=== PATIENT | male | born 1985 | race Caucasian/White ===

== ENCOUNTER 2021-11-22 04:12 | Emergency (ER) | payer SELFPAY ==
--- NOTE | 2021-11-22 04:39 | ED.DENTAL ---
HPI - Dental/Oral General Chief complaint: Dental/Oral Stated complaint: PAIN Source: patient Mode of arrival: ambulatory Limitations: no limitations History of Present Illness HPI Narrative: this is a 35-year-old gentleman that presents with dental pain with some left lower jaw swelling tender submandibular gland on the left with some left lower molar tenderness with surrounding gum inflammation, was seen at an urgent care earlier this this afternoon was prescribed medication but pharmacy closed prior to her arrival. Currently there is no fever chills no nausea vomiting no shortness of breath. MD Complaint: tooth pain Teeth map: 1. left lower molar surrounding gum inflammation tooth decay Onset (ago): day(s) Duration: constant Severity: moderate Severity scale (1-10): 7 Relieving factors: NSAIDs Exacerbating factors: chewing and cold Associated symptoms: gum swelling Related Data Home Medications Medication Instructions Recorded Confirmed lisinopril 10 mg tablet 10 mg PO DAILY 01/12/19 11/22/21 pantoprazole 40 mg tablet,delayed 40 mg PO DAILY 01/12/19 11/22/21 release propranolol 10 mg tablet 15 mg PO TID 01/12/19 11/22/21 sertraline 100 mg tablet 200 mg PO DAILY 01/12/19 11/22/21 hydrochlorothiazide 12.5 mg capsule 12.5 mg PO BID 11/22/21 11/22/21 hydroxyzine pamoate 25 mg capsule 25 mg PO DAILY 11/22/21 11/22/21 lidocaine HCl 2 % mucosal solution See Rx Instructions .Route .COMPLEX 11/22/21 11/22/21 (Lidocaine Viscous) naproxen 500 mg tablet 500 mg PO BID PRN Pain 11/22/21 11/22/21 Allergies Allergy/AdvReac Type Severity Reaction Status Date / Time No Known Allergies Allergy Verified 11/22/21 04:26 Review of Systems Review of Systems: All systems reviewed & are unremarkable except as noted in HPI and below PMFSH Past Medical History Medical History Patient denies medical problems Exam Const: General: healthy appearing and no acute distress Nutritional Appearance: well nourished HENMT: Head: normal to inspection Other: left lower jaw swelling and submandibular tenderness with palpation on the le Eyes: EOM: EOMs intact bilaterally Direct Ophthalmoscopy: no photophobia Neck: Neck: normal visual inspection, no lymphadenopathy and no meningeal signs Chest: Chest palpation & inspection: normal inspection of the chest Resp: Effort & Inspection: normal respiratory effort Auscultation: clear to auscultation bilaterally Cardio: Rate: regular rate Rhythm: regular rhythm GI: Auscultation: normal bowel sounds Skin: General skin exam: normal color Rashes: no rashes Neuro: General: patient oriented x3 and moves all extremities Extrem: General: normal to inspection and no clubbing, cyanosis or edema Psych: Mental Status: mental status grossly normal Affect: normal affect Course Course Emergency Course: patient received IM ceftriaxone and IM Toradol for pain and antibiotic Critical Care Time Critical Care Time Critical Care Time: No Discharge Plan Discharge Clinical Impression: Toothache, Dental abscess Patient Disposition: Home, Self-Care Condition: Stable Instructions: Antibiotic Form, Toothache (ED), Dental Abscess (ED) Additional Instructions: Take medicine as previous prescribed by urgent care and follow-up with dentist. Prescriptions: No Action lisinopril 10 mg Tablet 10 mg PO DAILY sertraline 100 mg tablet 200 mg PO DAILY propranolol 10 mg tablet 15 mg PO TID pantoprazole 40 mg tablet,delayed release (DR/EC) 40 mg PO DAILY amoxicillin-pot clavulanate 875-125 mg tablet 1 tablet PO Q12H Qty: 20 0RF Follow-up/Referrals: UNKNOWN,DOCTOR [Primary Care Provider] - Stand Alone Forms: Work/School Release IP Time of Disposition: 04:43
[2021-11-22 04:42] VITALS: BP 133/87; PULSE 99; RESP 19; TEMP 36.3; O2SAT 96
[2021-11-22] MEDS: KETOROLAC (*BKC) 60 MG/2 ML VIAL IM (04:58)
[2021-11-22] MEDS: cefTRIAXone 1 GM, LIDOCAINE HCL 1% LOCAL INJ 2.1 ML IM (05:01)
[2021-11-22 05:46] VITALS: BP 113/68; PULSE 106; RESP 18; TEMP 36.2; O2SAT 95
== END 2021-11-22 05:48 | disposition home or self-care (01) ==
PROVIDERS: Emergency Provider Emergency Medicine
DX: K08.89 Other specified disorders of teeth and supporting structures (principal); K04.7 Periapical abscess without sinus
CPT/HCPCS: 96372; 99284; J0696; J1885

== ENCOUNTER 2023-09-02 20:08 | Emergency (ER) | payer OTHER, SELFPAY ==
[2023-09-02] VITALS (23 sets, daily range): BP systolic 71–97; BP diastolic 22–82; PULSE 75–79; RESP 16–20; O2SAT 95–99
--- NOTE | ~2023-09-02 | XR_ITS ---
EXAMINATION: XR chest 2V DATE: 09/02/2023 21:19 INDICATION: Fluid overload. Leg swelling. TECHNIQUE: Frontal and lateral views of the chest were obtained. COMPARISON: CT abdomen and pelvis 09/02/2023 FINDINGS: There is mild atelectasis in left lower lung zone. No pleural effusion or pneumothorax. The heart size is normal. There is an old healed fracture of right sixth rib. IMPRESSION: 1. Mild atelectasis in left lower lung zone. Reviewed, dictated and finalized at location E.
--- NOTE | ~2023-09-02 | CT_ITS ---
EXAMINATION: CT abdomen pelvis w con DATE: 09/02/2023 21:19 INDICATION: Painless jaundice. TECHNIQUE: Computed tomography (CT) of the abdomen and pelvis was performed with 100 mL Omnipaque 350 intravenous contrast. Automated exposure control and iterative reconstruction technique were employe d. The dose-length product was 1574.74 mGy-cm. COMPARISON: None. FINDINGS: The visualized portions of lung bases demonstrate mild atelectasis. No pleural effusion. Th e heart size is normal. No pericardial effusion. The liver demonstrates surface nodularity, consisten t with cirrhosis. There is moderate splenomegaly. The gallbladder is distended, which may be secondar y to fasting. The pancreas, adrenal glands, and kidneys are normal. There are no dilated loops of bow el. There are no pathologically enlarged lymph nodes. There is a 14.1 x 6.7 x 13.7 cm cystic mass wit h wall calcifications in the subcutaneous fat posterior to the pelvis and lumbar spine. There is a mo derate volume of ascites. There is mild periportal lymphadenopathy, likely reactive. There is a heidi renal venous shunt. Body wall edema is noted. There is mild thoracic and lumbar spondylosis. IMPRESSION: 1. Cirrhosis of the liver with portal venous hypertension. 2. Moderate volume of ascites. 3. 14.1 cm subcutaneous cystic mass posterior to the pelvis and lumbar spine, most likely a chronic h ematoma. Reviewed, dictated and finalized at location E. IMPRESSION: 1. Cirrhosis of the liver with portal venous hypertension. 2. Moderate volume of ascites. 3. 14.1 cm subcutaneous cystic mass posterior to the pelvis and lumbar spine, m ost likely a chronic hematoma.
--- NOTE | 2023-09-02 20:11 | ED.GENADULT ---
HPI - General Adult General Chief complaint: Alcohol Stated complaint: Jaundice Time Seen by Provider: 09/02/23 20:10 History of Present Illness HPI narrative: Patient is a 37 year old male with history of ETOH abuse for 15-20 years, here with jaundice. Patient has been a heavy drinker for many years, has had several rounds of rehab, last drink was yesterday around 1 pm. He denies any withdrawal symptoms yesterday or today, previously has had withdrawal tremors, no seizures in the past. His notes that he became jaundice about 9 days ago. He has had progressive yellowing of his skin as well as progressive lower extremity swelling and darkening of his urine. He denies abdominal pain or abdominal distention. He has been referred to both a logistics lead and traveler changer in the past and never followed with them. at bedside notes about a month ago his Bilirubin was around 2 and his AST was around 300s. He denies fever, chills, cough, congestion, shortness of breath. Related Data Home Medications Medication Instructions Recorded Confirmed lisinopril 10 mg tablet 10 mg PO DAILY 01/12/19 09/02/23 pantoprazole 40 mg tablet,delayed 40 mg PO DAILY 01/12/19 09/02/23 release propranolol 10 mg tablet 10 mg PO TID 01/12/19 09/02/23 sertraline 100 mg tablet 200 mg PO DAILY 01/12/19 09/02/23 hydroxyzine pamoate 25 mg capsule 50 mg PO TID PRN Anxiety 11/22/21 09/02/23 atorvastatin 20 mg tablet 20 mg PO DAILY 09/02/23 09/02/23 buspirone 5 mg tablet 5 mg PO TID 09/02/23 09/02/23 cholecalciferol (vitamin D3) 1,250 1,250 mcg PO WEEKLY 09/02/23 09/02/23 mcg (50,000 unit) tablet folic acid 1 mg tablet 2 mg PO DAILY 09/02/23 09/02/23 magnesium 200 mg tablet 400 mg PO DAILY 09/02/23 09/02/23 Allergies Allergy/AdvReac Type Severity Reaction Status Date / Time No Known Allergies Allergy Verified 11/22/21 04:26 Review of Systems Review of Systems: All systems reviewed & are unremarkable except as noted in HPI and below PMFSH Past Medical History Medical History Patient denies medical problems Exam Narrative: GENERAL: Well-appearing, well-nourished, and in no acute distress. HEAD: Normocephalic, atraumatic. EYES: PERRLA and EOMI. Scleral icterus ENT: Nares clear. Mucous membranes moist. NECK: Supple. CHEST: Clear to auscultation. No respiratory distress. HEART: Regular rate and rhythm. Normal peripheral pulses. ABDOMEN: Soft, nontender, nondistended. EXTREMITIES: Normal range of motion. Bilateral lower extremity pitting edema to the knee. SKIN: Warm, dry, no rash. Significantly jaundice, worst in the face but is present throughout body NEURO: No focal deficits. Alert and oriented x3. No tremor noted. PSYCH: Normal mood and affect. Course Course Emergency Course: Chart review performed. Patient here with jaundice sent in by PCP. Triage vitals normal. Patient seen evaluated, significantly jaundiced, concern for acute liver failure with cirrhosis due to underlying ETOH abuse. Will do basic labs, CT abdomen pelvis to evaluate for possible obstructive process such as liver mass or pancreatic mass. Lab work and imaging reviewed. CBC shows Hgb of 1.6, platelet count of 135, no leukocytosis. INR is 1.6. Sodium is 129, Lactic normal. Alk Phos 501, AST 169, ALT 76, Lipase 78, Albumin low at 1.9. Total bilirubin is elevated at 17.8. Urine has 3+ bilirubin, 4.0 Urobilinogen. ETOH 4. CXR shows mild atelectasis in left lower lung zone. CT shows cirrhosis of the liver with portal venous hypertension. Moderate volume of ascites. 14.1 cm subcutaneous systic mass posterior to the pelvis and lumbar spine. Family notes this is from a traumatic injury years ago and it never reabsorbed. Family would prefer transfer to [facility]. Attempted to call both [facility] as well as [facility], neither of these have capabilities to handle this. Blood pressure 97/57, will give dos
[2023-09-02 20:25] LABS: Basophils Absolute Auto 0.05 K/mm3 (0.00-0.10); Basophils Percent Auto 0.5 % (0.0-1.0); Eosinophils Percent Auto 1.9 % (1.0-6.0); Hematocrit 30.9 % (40.0-54.0); Hemoglobin 11.6 g/dL (14.0-18.0); Immature Granulocyte Absolute 0.12 K/mm3 (0.00-0.00); Immature Granulocyte Percent A 1.1 % (0.0-0.0); Lymphocytes Absolute Auto 0.83 K/mm3 (1.10-4.50); Lymphocytes Percent Auto 7.9 % (18.0-42.0); Mean Corpuscular HGB Conc 37.5 g/dL (32-36); Mean Corpuscular Hemoglobin 34.2 pg (27.0-31.0); Mean Corpuscular Volume 91.2 fL (78.0-102.0); Mean Platelet Volume 10.1 fl (8.7-11.0); Monocytes Absolute Auto 1.09 K/mm3 (0.10-0.90); Monocytes Percent Auto 10.3 % (2.0-11.0); Neutrophils Absolute Auto 8.28 K/mm3 (1.70-7.20); Neutrophils Percent Auto 78.3 % (50.0-70.0); Platelet Count Result 135 K/mm3 (150-420); Red Blood Count 3.39 M/mm3 (4.70-6.10); Red Cell Distribution Width 19.8 % (11.6-14.4); White Blood Count 10.6 K/mm3 (4.8-10.8)
[2023-09-02 20:40] LABS: INR 1.6; Partial Thromboplastin Time 32.1 Sec (23.9-30.70)
[2023-09-02 20:44] LABS: Lactic Acid Reflex 1.3 mmol/L (0.4-2.0)
[2023-09-02 20:48] LABS: Alanine Aminotransferase 76 U/L (16-63); Albumin Level 1.9 g/dL (3.4-5.0); Alkaline Phosphatase 501 U/L (46-116); Anion Gap 10 mmol/L (4-12); Aspartate Amino Transferase 169 U/L (15-37); Bilirubin,Total 17.8 mg/dL (0.00-1.00); Blood Urea Nitrogen 13 mg/dL (7-18); Calcium 8.4 mg/dL (8.5-10.1); Carbon Dioxide 24 mmol/L (21-32); Chloride 95 mmol/L (98-108); Estimated Glomerular Filt Rate > 60; Ethanol 4 mg/dL (0-6); Glucose 118 mg/dL (70-99); NT Pro B Type Natriuretic Pept 305 pg/mL (0-125); Osmolality Calculated 269 mOsm/kg (285-295); Potassium 3.7 mmol/L (3.5-5.1); Total Protein 6.3 g/dL (6.4-8.2)
[2023-09-02 20:48] LABS: Appearance Urine Clear (Clear); Bilirubin Urine 3+ (Negative); Glucose Urine UA Trace (Negative); Ketones Urine 1+ (Negative); Leukocyte Esterase Ur Negative LEU/UL (Negative); Nitrate Urine Positive (Negative); Protein Urine 1+ (Negative); pH Urine 6.5 (5.0-8.0)
[2023-09-02 20:51] LABS: Sodium 129 mmol/L (136-145)
[2023-09-02 20:52] LABS: Lipase 78 U/L (16-77)
[2023-09-02 20:59] LABS: Add Urine Microscopic? YES; Blood Urine Trace-Lysed (Negative); Color Urine Dark Orange (Yellow); RBC Urine 0-2 /hpf (0-2); Squamous Epithelial Cell Urine Rare /hpf (Few); WBC Urine 0-3 /hpf (0-3)
[2023-09-02 21:00] LABS: Bacteria Urine 3+ /hpf; Epithelial Cell Casts Urine Present /lpf; Renal Epithelial Cells Urine Moderate /hpf
--- NOTE | 2023-09-02 21:35 | PC.NURSE ---
Dr Schulz updated pt and his about labs and need for transfer. 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
--- NOTE | 2023-09-02 21:43 | PC.NURSE ---
Pt and informed of no hepatology at [facility] and limited Dr acceptance at [facility] for hepatology. Pt prefers [place] if going to [facility].
[2023-09-02] MEDS: ALBUMIN HUMAN 25% 25 GM/100 ML 100 ML IVPB (22:06)
[2023-09-02] MEDS: SODIUM CHLORIDE 0.9% IV 500 ML 999 ML IV CONT (22:40)
--- NOTE | 2023-09-02 23:30 | PC.NURSE ---
Pt and informed on POC and report after ERP spoke lynda/ [facility]. POC discussed to have pt referred back to [facility] for GI/hepatology placement, awaiting call back from and [facility]. Pt sleeping, monitored, albumin infusing as ordered.
[2023-09-02 23:39] LABS: Ammonia 37 umol/L (11-32)
[2023-09-03] VITALS: O2SAT 97
[2023-09-03 00:15] VITALS: O2SAT 96
[2023-09-03 00:30] VITALS: O2SAT 96
[2023-09-03 00:31] VITALS: BP 112/70; PULSE 75; RESP 18; O2SAT 95
--- NOTE | 2023-09-03 00:32 | PC.NURSE ---
This RN called to pt room. Pt and wanting to go home and leave AMA. They are frustrated that their FMD sent them here and didn't send them directly to [facility] or [facility] where hepatology and GI was located. ERP informed of pts wishes and wanting to leave. ERP Dr Schulz in to speak w/ pt and his .
--- NOTE | 2023-09-03 00:40 | PC.NURSE ---
Dr Schulz spoke in depth w/ pt and his about transfer needs and care. After explaining all benefits and risks of him leaving, pt still wants to go home and f/u w/ his GI/Hepatology Dr that he has a referral to. He denies any c/o or pain and AMA paperwork filled out by Dr Schulz and pt signed. IV dc/d.
[2023-09-03 00:47] VITALS: BP 102/70; PULSE 78; RESP 18; TEMP 36.6; O2SAT 97
--- NOTE | 2023-09-05 12:55 | PC.NURSE ---
FINAL URINE CULTURE REPORT: NO GROWTH, NO FURTHER ACTION OR TREATMENT NEEDED.
[2023-09-06 01:43] LABS: Hepatitis B Surface Antigen NON-REACTIVE (NON-REACTIVE)
[2023-09-06 02:39] LABS: Hepatitis C Virus Antibody NON-REACTIVE (NON-REACTIVE)
[2023-09-06 05:59] LABS: Hepatitis A Antibody IgM NON-REACTIVE (NON-REACTIVE); Hepatitis B Core Antibody NON-REACTIVE (NON-REACTIVE)
== END 2023-09-03 00:47 | disposition left against medical advice (07) ==
PROVIDERS: Emergency Provider Student in an Organized Health Care Education/Training Program; PCP Physician Assistant
DX: K72.10 Chronic hepatic failure without coma (principal); E80.6 Other disorders of bilirubin metabolism; F10.10 Alcohol abuse, uncomplicated; Y90.9 Presence of alcohol in blood, level not specified; K70.31 Alcoholic cirrhosis of liver with ascites; E87.1 Hypo-osmolality and hyponatremia; I95.9 Hypotension, unspecified; Z79.899 Other long term (current) drug therapy
CPT/HCPCS: 36415; 71046; 74177; 80053; 80074; 80307; 81001; 82140; 83605; 83690; 83880; 85025; 85610; 85730; 87086; 96365; 96366; 99284; J7040; P9047; Q9967